=== PATIENT | male | born 1955 | race Caucasian/White ===

== ENCOUNTER 2017-06-26 14:11 | Emergency (ER) | payer BC ==
[2017-06-26] VITALS (7 sets, daily range): BP systolic 168–228; BP diastolic 79–112; PULSE 69–108; RESP 14–18; TEMP 98.4; O2SAT 97–100
[~2017-06-26] VITALS: Ht 188 cm; Wt 110.0 kg
[~2017-06-26 14:11] MED LIST: COUM5TAB PO
[2017-06-26] MEDS ORDERED: IOHEXOL 350 MG/ML 10 ML VIAL (for RAD DIAG) IVCONTRAST ONE (14:12)
--- NOTE | 2017-06-26 14:44 | RADRPT ---
EXAM DATE/TIME: 06/26/2017 14:29 [facility] COMPARISON: No previous studies available for comparison. INDICATIONS : Chest pain MEDICAL HISTORY : Hypertension. SURGICAL HISTORY : None. ENCOUNTER: Initial ACUITY: 1 day PAIN SCORE: 0/10 LOCATION: chest FINDINGS: PA and lateral views of the chest demonstrate the lungs to be symmetrically aerated without evidence of mass, infiltrate or effusion. The cardiomediastinal contours are unremarkable. Osseous structure s are intact. CONCLUSION: Normal examination for a patient of this age. Zach Parkinson MD on June 26, 2017 at 14:42 Board Certified Radiologist. This report was verified electronically.
--- NOTE | 2017-06-26 14:47 | PD ---
HPI Chief Complaint: Chest Pain Time Seen by Provider: 14:47 Travel History International Travel<30 days: No Contact w/Intl Traveler<30days: No Traveled to known affect area: No History of Present Illness HPI 62-year-old male with history of hypertension and factor V deficiency presents to the emergency department for evaluation of chest pain, substernal in nature that began 45 minutes ago. Patient was driving when the pain began. He is visiting from [place]. It radiates to his back to his left neck. He has never had anything like this before. States the pain is an 8 out of 10. There is a heaviness associated with it. There was no shortness of breath. No lightheadedness or diaphoresis. Denies any recent illnesses, fever, or chills. Patient denies cardiac history. He has not been recently ill. Patient has no other symptoms to report this time. PFSH Past Medical History Blood Disorders: Yes (FACTOR 5) Diminished Hearing: No Past Surgical History Tonsillectomy: Yes Social History Alcohol Use: Yes (6 PACK A DAY) Tobacco Use: No Substance Use: No Allergies-Medications (Allergen,Severity, Reaction): Coded Allergies: No Known Allergies (Verified Adverse Reaction, Unknown, 06/26/17) Reported Meds & Prescriptions Reported Meds & Active Scripts Active Reported Valsartan 320 Mg Tab 320 Mg PO DAILY Pepcid (Famotidine) 20 Mg Tab 20 Mg PO BID Coumadin (Warfarin) 2 Mg Tab 2 Mg PO DAILY Review of Systems Except as stated in HPI: all other systems reviewed are Neg Physical Exam Narrative GENERAL: Well-nourished male patient, in no acute distress SKIN: Focused skin assessment warm/dry. HEAD: Atraumatic. Normocephalic. EYES: Pupils equal and round. No scleral icterus. No injection or drainage. ENT: No nasal bleeding or discharge. Mucous membranes pink and moist. NECK: Trachea midline. No JVD. CARDIOVASCULAR: Tachycardic rate and rhythm. No murmur appreciated. RESPIRATORY: No accessory muscle use. Clear to auscultation. Breath sounds equal bilaterally. GASTROINTESTINAL: Abdomen soft, non-tender, nondistended. Hepatic and splenic margins not palpable. MUSCULOSKELETAL: No obvious deformities. No clubbing. No cyanosis. No edema. NEUROLOGICAL: Awake and alert. No obvious cranial nerve deficits. Motor grossly within normal limits. Normal speech. PSYCHIATRIC: Appropriate mood and affect; insight and judgment normal. Data Data Last Documented VS Vital Signs Date Time Temp Pulse Resp B/P (MAP) Pulse Ox O2 Delivery O2 Flow Rate FiO2 06/26/17 17:20 97 21 06/26/17 17:17 108 16 188/81 (116) Room Air 06/26/17 14:14 98.4 Orders Orders Electrocardiogram (06/26/17 14:17) Complete Blood Count With Diff (06/26/17 14:17) Basic Metabolic Panel (Bmp) (06/26/17 14:17) Ckmb (Isoenzyme) Profile (06/26/17 14:17) Troponin I (06/26/17 14:17) Iv Access Insert/Monitor (06/26/17 14:17) Ecg Monitoring (06/26/17 14:17) Oxygen Administration (06/26/17 14:17) Oximetry (06/26/17 14:17) Prothrombin Time / Inr (Pt) (06/26/17 14:17) Chest, Pa & Lat (06/26/17 14:17) Aspirin Chew (Aspirin Chew) (06/26/17 15:00) Nitroglycerin Sl (Nitrostat Sl) (06/26/17 15:00) Sodium Chlorid 0.9% 500 Ml Inj (Ns 500 M (06/26/17 15:00) Lipase (06/26/17 14:56) I-Stat Creatinine (06/26/17 15:04) Cta Thor Abd Aorta W Iv C W3d (06/26/17 ) I-Stat Profile (06/26/17 14:50) CKMB (06/26/17 14:50) CKMB% (06/26/17 14:50) Iohexol 350 Inj (Omnipaque 350 Inj) (06/26/17 14:12) Hydralazine Inj (Apresoline Inj) (06/26/17 17:00) Admit Order (Ed Use Only) (06/26/17 17:27) Labs Laboratory Tests Test 06/26/17 14:50 White Blood Count 5.1 TH/MM3 Red Blood Count 4.38 MIL/MM3 Hemoglobin 15.6 GM/DL Bedside Hemoglobin 16.0 G/DL Hematocrit 45.2 % Bedside Hematocrit 47.0 % Mean Corpuscular Volume 103.4 FL Mean Corpuscular Hemoglobin 35.6 PG Mean Corpuscular Hemoglobin Concent 34.4 % Red Cell Distribution Width 13.5 % Platelet Count 165 TH/MM3 Mean Platelet Volume 8.2 FL Neutrophils (%) (Auto) 64.8 % Lymphocytes (%) (Auto) 19.7 % Monocytes (%) (Auto) 13.9 % Eosinophils (%) (Auto) 0.5 % Basophils (%) (Auto) 1.1 % Neutrophils # (Auto) 3.3 TH/MM3 Lymphocytes # (Auto) 1.0 TH/MM3 Monocytes # (Auto) 0.7 TH/MM3 Eosinophils # (Auto) 0.0 TH/MM3 Basophils # (Auto) 0.1 TH/MM3 CBC Comment DIFF FINAL Differential Comment Prothrombin Time 30.1 SEC Prothromb Time International Ratio 2.6 RATIO Bedside Sodium 135 MMOL/L Blood Urea Nitrogen 11 MG/DL Creatinine 1.04 MG/DL Random Glucose 113 MG/DL Calcium Level 8.8 MG/DL Sodium Level 134 MEQ/L Potassium Level 5.1 MEQ/L Chloride Level 101 MEQ/L Carbon Dioxide Level 22.3 MEQ/L Bedside Potassium 5.2 MMOL/L Bedside Chloride 100 MMOL/L Anion Gap 11 MEQ/L Bedside Blood Urea Nitrogen 15 MG/DL Bedside Creatinine 1.0 MG/DL Estimat Glomerular Filtration Rate 72 ML/MIN Bedside Glucose 120 MG/DL Total Creatine Kinase 254 U/L Creatine Kinase MB 5.0 NG/ML Troponin I LESS THAN 0.02 NG/ML Lipase 280 U/L MDM Medical Decision Making Medical Screen Exam Complete: Yes Emergency Medical Condition: Yes Medical Record Reviewed: Yes Differential Diagnosis ACS versus costochondritis versus chest wall pain versus aortic dissection Narrative Course 62-year-old male presents to emergency department for evaluation of chest pain. Patient appears without distress. EKG is reviewed per my attending with no acute ST elevation or depression. Patient is tachycardic. His pressure is quite elevated. Sublingual nitro is given in this seems to alleviate the patient's pain. There is some concern for dissection with such hypertension, pain radiating to his back and neck. I-STAT creatinine is ordered. Laboratory Tests Test 06/26/17 14:50 White Blood Count 5.1 TH/MM3 Red Blood Count 4.38 MIL/MM3 Hemoglobin 15.6 GM/DL Bedside Hemoglobin 16.0 G/DL Hematocrit 45.2 % Bedside Hematocrit 47.0 % Mean Corpuscular Volume 103.4 FL Mean Corpuscular Hemoglobin 35.6 PG Mean Corpuscular Hemoglobin Concent 34.4 % Red Cell Distribution Width 13.5 % Platelet Count 165 TH/MM3 Mean Platelet Volume 8.2 FL Neutrophils (%) (Auto) 64.8 % Lymphocytes (%) (Auto) 19.7 % Monocytes (%) (Auto) 13.9 % Eosinophils (%) (Auto) 0.5 % Basophils (%) (Auto) 1.1 % Neutrophils # (Auto) 3.3 TH/MM3 Lymphocytes # (Auto) 1.0 TH/MM3 Monocytes # (Auto) 0.7 TH/MM3 Eosinophils # (Auto) 0.0 TH/MM3 Basophils # (Auto) 0.1 TH/MM3 CBC Comment DIFF FINAL Differential Comment Prothrombin Time 30.1 SEC Prothromb Time International Ratio 2.6 RATIO Bedside Sodium 135 MMOL/L Blood Urea Nitrogen 11 MG/DL Creatinine 1.04 MG/DL Random Glucose 113 MG/DL Calcium Level 8.8 MG/DL Sodium Level 134 MEQ/L Potassium Level 5.1 MEQ/L Chloride Level 101 MEQ/L Carbon Dioxide Level 22.3 MEQ/L Bedside Potassium 5.2 MMOL/L Bedside Chloride 100 MMOL/L Anion Gap 11 MEQ/L Bedside Blood Urea Nitrogen 15 MG/DL Bedside Creatinine 1.0 MG/DL Estimat Glomerular Filtration Rate 72 ML/MIN Bedside Glucose 120 MG/DL Total Creatine Kinase 254 U/L Creatine Kinase MB 5.0 NG/ML Troponin I LESS THAN 0.02 NG/ML Lipase 280 U/L Last Impressions Chest X-Ray 06/26/17 1417 Signed Impressions: Service Date/Time: June 14:29 - CONCLUSION: Normal examination for a patient of this age. Zach Parkinson MD Aorta CTA 06/26/17 0000 Signed Impressions: Service Date/Time: June 15:52 - CONCLUSION: 1. There is atherosclerotic changes in the thoracic and abdominal aorta. 2. No evidence of aortic dissection or aneurysmal dilatation 3. Fatty liver. Zach Parkinson MD Findings are reviewed with the patient in my attending. We feel it is in his best interest to be admitted 23 observation to the chest pain center. Plan is discussed with the patient and he is in agreement with this plan of care. I am called back into the room by the patient. He states that he is concerned about his insurance coverage after speaking with registration. He states that he would like to leave and drive back to [place] where his insurance is effective. I explained the patient that I cannot safely discharge him and reminded him of my concern about his cardiac etiology for his symptoms. If he does to choose to leave, he understands that he is taking Sutent consequently is not limited to worsening cardiac injury, paralysis, . Patient verbalizes understanding and chooses to leave at this time AGAINST MEDICAL ADVICE. Diagnosis Primary Impression: Chest pain Qualified Codes: R07.9 - Chest pain, unspecified Additional Impression: Hypertension Qualified Codes: I10 - Essential (primary) hypertension Admitting Information Admitting Physician Requests: Observation Disposition: 07 AGAINST MEDICAL ADVICE Condition: Stable AlexandreNoni Jun 26, 2017 14:47
[2017-06-26] MEDS ORDERED: ASPIRIN 81 MG CHEW TAB PO ONE (15:00)
[2017-06-26] MEDS ORDERED: SODIUM CHLORID 0.9% 500 ML INJ 500 ML IV ONE (15:00)
[2017-06-26] MEDS ORDERED: NITROGLYCERIN 0.4 MG SL 25 TABS/BTL SL SCH (15:00)
[2017-06-26 15:15] LABS: I-STAT POTASSIUM 5.2 MMOL/L (3.5-4.9)
[2017-06-26 15:21] LABS: AUTOMATED NEUTROPHIL # 3.3 TH/MM3 (1.8-7.7); BASOPHIL # 0.1 TH/MM3 (0-0.2); BASOPHIL % 1.1 % (0.0-2.0); EOSINOPHIL % 0.5 % (0.0-4.0); HEMATOCRIT 45.2 % (39.0-51.0); HEMO FLAGS DIFF FINAL; LYMPH % 19.7 % (9.0-44.0); MEAN CELL VOLUME 103.4 FL (80.0-100.0); MEAN CORPUSCULAR HEMOGLOBIN 35.6 PG (27.0-34.0); MEAN CORPUSCULAR HGB CONC 34.4 % (32.0-36.0); MONO % 13.9 % (0.0-8.0); NEUT % 64.8 % (16.0-70.0); PLATELET COUNT 165 TH/MM3 (150-450); RED BLOOD COUNT 4.38 MIL/MM3 (4.50-5.90); RED CELL DISTRIBUTION WIDTH 13.5 % (11.6-17.2); WHITE BLOOD COUNT 5.1 TH/MM3 (4.0-11.0)
[2017-06-26 15:34] LABS: INTERNATIONAL NORMALIZED RATIO 2.6 RATIO; PROTHROMBIN TIME - PATIENT 30.1 SEC (9.8-11.6)
[2017-06-26 15:41] LABS: ANION GAP 11 MEQ/L (5-15); BICARBONATE 22.3 MEQ/L (21.0-32.0); BLOOD UREA NITROGEN 11 MG/DL (7-18); CHLORIDE 101 MEQ/L (98-107); GLOMERULAR FILTRATION RATE 72 ML/MIN (>89); SODIUM (NA) 134 MEQ/L (136-145)
[2017-06-26 15:42] LABS: CREATINE KINASE 254 U/L (39-308); POTASSIUM 5.1 MEQ/L (3.5-5.1)
[2017-06-26] MEDS ORDERED: COUM2TAB PO (16:24)
[2017-06-26] MEDS ORDERED: VALS1TAB70 PO (16:24)
[2017-06-26] MEDS ORDERED: FAMO1TAB37 PO (16:24)
--- NOTE | 2017-06-26 16:57 | RADRPT ---
EXAM DATE/TIME: 06/26/2017 15:52 [facility] COMPARISON: No previous studies available for comparison. INDICATIONS : Substernal chest pain radiating into jaw. IV CONTRAST: 70 cc Omnipaque 350 (iohexol) IV RADIATION DOSE: 12.01 CTDIvol (mGy) MEDICAL HISTORY : Pulmonary embolism. SURGICAL HISTORY : Tonsillectomy. ENCOUNTER: Initial ACUITY: 1 day PAIN SCALE: 5/10 LOCATION: chest TECHNIQUE: Volumetric scanning was performed using a multi-row detector CT scanner. The data was post processed with a variety of visualization algorithms including full volume maximum intensity projection, multi -planar sliding thin slab reformation, curved planar reformation, and surface rendering techniques. Using automated exposure control and adjustment of the mA and/or kV according to patient size, radiat ion dose was kept as low as reasonably achievable to obtain optimal diagnostic quality images. DICOM format image data is available electronically for review and comparison. FINDINGS: LUNGS: There is no consolidation or pneumothorax. No concerning pulmonary nodule is visualized. No pleural fluid is present. MEDIASTINUM: No abnormally enlarged lymph nodes by CT criteria. No axillary or hilar abnormalities are identified. ABDOMEN: The liver and spleen are free of focal defects. There is some fatty infiltration of the liver. The ga llbladder and pancreas demonstrate no abnormality. The adrenal glands are normal. The kidneys demonst rate no evidence of solid renal mass or hydronephrosis. No free fluid or abdominal masses are identif ied. No para-aortic adenopathy is seen. PELVIS: No evidence of free fluid or pelvic mass. No abnormally enlarged inguinal or retroperitoneal lymph no barbara are present. The bladder is unremarkable. THORACIC AORTA: The thoracic aortic root is normal with normal branching of the great vessels. There is no evidence of aneurysm or dissection. There is some atherosclerotic changes in the thoracic aorta. ABDOMINAL AORTA: The aorta is normal in caliber without aneurysm or dissection. There is some atherosclerotic changes in the aorta. The renal arteries are patent bilaterally. The proximal celiac and superior mesenteric arteries are patent and normal in diameter. PELVIC VESSELS: The internal iliac and external iliac vessels are patent without aneurysm or stenosis. CONCLUSION: 1. There is atherosclerotic changes in the thoracic and abdominal aorta. 2. No evidence of aortic dissection or aneurysmal dilatation 3. Fatty liver. Zach Parkinson MD on June 26, 2017 at 16:52 Board Certified Radiologist. This report was verified electronically.
[2017-06-26] MEDS ORDERED: hydrALAZINE HCL 20 MG/ML VIAL IV PUSH ONE (17:00)
[2017-06-26] MEDS ORDERED: ACETAMINOPHEN 500 MG CPLT PO PRN (17:30)
[2017-06-26] MEDS ORDERED: SODIUM CHLORIDE 0.9% FLUSH 10 ML FLUSH IV FLUSH PRN (17:30)
[2017-06-26] MEDS ORDERED: NITROGLYCERIN 0.4 MG SL 25 TABS/BTL SL PRN (17:30)
[2017-06-26] MEDS ORDERED: ONDANSETRON HCL 4 MG/2 ML VIAL IV PUSH PRN (17:30)
[2017-06-26] MEDS ORDERED: TEMAZEPAM 15 MG CAP PO PRN (17:30)
[2017-06-26] MEDS ORDERED: SODIUM CHLORIDE 0.9% FLUSH 10 ML FLUSH IV FLUSH SCH (21:00)
--- NOTE | 2017-06-27 08:14 | EKG ---
Date Performed: 06/26/2017 Time Performed: 14:22:22 PTAGE: 62 years EKG: Sinus rhythm INFERIOR MYOCARDIAL INFARCTION ABNORMAL ECG INTERPRETATION BASED ON A DEFAULT AGE OF 39 YEARS NO PREVIOUS TRACING DOCTOR: Rafa Thurman Interpretating Date/Time 06/27/2017 08:14:09
== END 2017-06-26 18:10 | disposition left against medical advice (07) ==
LOC: NEPC 14:11 → UNDOADMOB 17:28 → NEDA 17:28
DX: R07.9 Chest pain, unspecified (principal); I10 Essential (primary) hypertension; R94.31 Abnormal electrocardiogram [ECG] [EKG]
CPT/HCPCS: 71020; 71275; 74174; 80048; 82435; 82550; 82552; 82565; 82947; 83690; 84132; 84295; 84484; 84520; 85025; 85610; 93005; 96374; 99284; J0360; J7040; Q9967